=== PATIENT | male | born 1945 | race Caucasian/White ===

== ENCOUNTER 2016-09-17 09:52 | Inpatient (IN) ==
[2016-09-17] MEDS ORDERED: NS 1,000 ML IV ONE (10:07)
--- NOTE | 2016-09-17 10:33 | Diag Imaging Result Doc PS360 ---
EXAM: HEAD W/O CONTRAST HISTORY: AMS TECHNIQUE: Images were obtained from the skull base to vertex without IV contrast as per standard protocol. COMPARISON: None. FINDINGS: There is mild cerebral atrophy. There are no extra-axial collections. There is no evidence for acute infarct or hemorrhage. There is no midline shift or mass effect. There is no hydrocephalus. IMPRESSION: Mild cerebral atrophy. Electronically signed by Desirae Skaggs 09/17/2016 10:31 AM
[2016-09-17 10:36] LABS: MANUAL DIFF NEEDED? NO
[2016-09-17 10:38] LABS: BASO% 0.1 % (0.0-0.8); EOS# 0.04 X1000 (0.0-0.7); EOS% 0.4 % (0.0-10.0); HEMATOCRIT 41.1 % (42.0-52.0); HEMOGLOBIN 13.8 g/dL (14.0-18.0); IMM GRAN# 0.01 X1000 (0.0-0.04); IMM GRAN% 0.1 % (0.0-0.5); LYMPH# 1.22 X1000 (1.2-3.4); LYMPH% 12.9 % (20.5-51.1); MCH 29.4 PG (27-31); MCHC 33.6 g/dL (33-37); MCV 87.6 FL (81-99); MONO# 1.14 X1000 (0.11-0.59); MONO% 12.1 % (1.7-9.3); NEUT% 74.4 % (42.2-75.2); PLT 162 X1000 (130-400); RBC 4.69 XMIL (4.7-6.1)
--- NOTE | 2016-09-17 10:38 | Diag Imaging Result Doc PS360 ---
EXAM: CHEST-1 VIEW HISTORY: AMS TECHNIQUE: AP single view COMPARISON: None. FINDINGS: The cardiomediastinal silhouette is within normal limits. The pulmonary vasculature is not congested. Lung volumes are reduced with crowding of the basilar bronchovascular structures. It is difficult to exclude a mild left basilar infiltrate. There is no pneumothorax. IMPRESSION: Reduced lung volumes. Cannot exclude mild left basilar infiltrate. Electronically signed by Desirae Skaggs 09/17/2016 10:35 AM
[2016-09-17 10:54] LABS: ALBUMIN 4.4 g/dL (3.5-5.0); CALCIUM 9.1 mg/dL (8.8-10.2); MAGNESIUM 2.2 mg/dL (1.5-2.7); POTASSIUM 3.6 mmol/L (3.5-5.1); TOTAL BILIRUBIN 0.4 mg/dL (0.20-1.00); TOTAL PROTEIN 6.9 g/dL (6.3-8.3)
--- NOTE | 2016-09-17 11:06 | EKG Report ---
Test Performed on : 09/17/2016 10:46:29 AM Test Reason : altered hx Blood Pressure : / mmHG Vent. Rate : 093 BPM Atrial Rate : 093 BPM P-R Int : 162 ms QRS Dur : 092 ms QT Int : 372 ms P-R-T Axes : 067 -21 060 degrees QTc Int : 462 ms Normal sinus rhythm. Minimal voltage criteria for LVH, may be normal variant Borderline ECG When compared with ECG of 18-FEB-2016 09:11, T wave amplitude has decreased in Anterior leads Unconfirmed Result
[2016-09-17 11:19] LABS: CK INDEX 1.6 (0.0-2.5); CK-MB 5.09 ng/mL (0.0-5.0)
--- NOTE | 2016-09-17 12:15 | PROVIDER DOCUMENTATION ---
This chart was entered by Sol Bates Scribe, acting as scribe for Jose Pena MD. HPI-Neurological Disorder - General Chief Complaint: Altered Mental Status Stated Complaint: altered mental Time Seen by Provider: 09/17/16 10:06 Source: patient Allergies/Adverse Reactions: Patient Allergies Allergy/AdvReac Type Severity Reaction Status Date / Time No Known Allergies Allergy Verified 02/18/16 08:45 Home Medications: Home Medication List Medication Instructions Recorded Confirmed Last Taken Type Bupropion X.l. [Wellbutrin Xl] 300 mg PO DAILY 02/18/16 02/20/16 02/19/16 09:00 History Diazepam [Valium] 5 mg PO BID 02/18/16 02/20/16 02/19/16 21:00 History Gabapentin [Neurontin] 2 tab PO QHS 02/18/16 02/20/16 02/19/16 21:00 History Insulin Glargine [Lantus] 20 unit SUBQ QHS 02/18/16 02/20/16 02/19/16 21:00 History Insulin NPL/Insulin Lispro 10 unit SQ TID 02/18/16 02/20/16 02/20/16 05:00 History [Humalog Mix 75-25 Pen] Lisinopril [Zestril] 5 mg PO PRN PRN 02/18/16 02/20/16 02/20/16 05:00 History Metformin [Glucophage] 500 mg PO PRN PRN 02/18/16 02/20/16 02/19/16 21:00 History SIMVAstatin [Zocor] 10 mg PO QHS 02/18/16 02/20/16 02/19/16 21:00 History Oxycodone HCl/Acetaminophen 1 each PO Q4H PRN PRN #60 tablet 02/21/16 Unknown Rx [Percocet 5-325 mg Tablet] Rivaroxaban [Xarelto] 10 mg PO Q24H #14 tablet 02/21/16 Unknown Rx - History of Present Illness-Neuro Nature of Presenting Problem: Pt is 70 y/o M presents to the ED with AMS. Pt's friend states Pt came to work confused, disoriented and having abnormal gait. Pt's friend states last time seen normal was at 1800 last night. 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 Pt's friend states Pt is not like himself at all. Headache Location: denies: frontal, temporal, occipital, parietal, global Severity: reports: moderate Onset/Duration: reports: this morning Timing: reports: still present, getting worse Context: reports: impaired speech (slurred), facial droop (R), other (AMS) Approximate time patient was last seen normal?: 18:00 (last night ) Character of Altered Mental Status: reports: disoriented, confused Any recent trauma/injury?: reports: none Character of Deficits: reports: new weakness, impaired speech, decreased ability to stand, decreased ability to walk New weakness or altered sensation location:: reports: none Cognitive Baseline: alert but disoriented (confused) Gait Baseline: walks without assistance Associated Symptoms: reports: decreased ability to walk or stand, confusion, slurred speech, weakness. denies: short of breath, headache, fainting, dizziness, chest pain, neck/back pain, fatigue, fever/chills, insomnia, loss of consciousness, muscle spasms, nausea, numbness in legs/feet, paresthesia, diaphoretic, ringing in ears, seizures, sleepy, tingling in legs/feet, trouble walking, vomiting, vision changes Similar Symptoms Previously?: No Recently seen or treated by another doctor?: No Review of Systems - Adult - REVIEW OF SYSTEMS - ADULT Constitutional: reports: no symptoms reported Eyes: reports: no symptoms reported Ears, Nose, Mouth & Throat: reports: no symptoms reported Cardiovascular: reports: no symptoms reported Respiratory: reports: no symptoms reported Gastrointestinal: reports: no symptoms reported Genitourinary: reports: no symptoms reported Musculoskeletal: reports: muscle weakness. denies: bone pain, back pain, joint pain, neck pain Integumentary: reports: no symptoms reported Neurological: reports: slurred speech, other (confusion and disoriented). denies: dizziness/vertigo, headache/migraines, numbness, syncope Psychiatric: reports: no symptoms reported Endocrine: reports: no symptoms reported Hematologic/Lymphatic: reports: no symptoms reported Allergic/Immunologic: reports: no symptoms reported All Other Systems: Reviewed and Negative Past History - Adult - PAST MEDICAL HISTORY-ADULT Review of Records: reports: Nursing Assessment Review, Medications Reviewed, Social history reviewed & non-contributory. Major Childhood Illnesses: reports: denies history Cardiovascular: reports: HTN Respiratory: reports: denies history Gastrointestinal: reports: denies history Obstetrical/Gynecological: reports: denies history Genitourinary: reports: denies history Musculoskeletal: reports: denies history Neurological: reports: denies history Endocrine/Immune: reports: Diabetes Other Conditions: reports: denies history - PRIOR SURGERIES/PROCEDURES Surgical/Procedure History: reports: appendectomy, tonsillectomy, joint replacement - PRIOR HOSPITALIZATIONS Prior Hospitalizations: reports: for similar symptoms - IMMUNIZATION STATUS Childhood Immunizations: See Nurse Assessment Flu Vaccine: See Nurse Assessment - FAMILY HISTORY Family History: reviewed, not pertinent - SOCIAL HISTORY Smoking: quit greater than 1 year, cigarettes Substance Use: denies Living Situation: family Physical Exam- Neurological - Physical Exam-Neuro Initial Vital Signs Reviewed: Yes General Appearance: alert, no apparent distress Eye Exam: bilateral eye: normal inspection, PERRL, EOMI HENMT: normocephalic/atraumatic, moist mucous membranes, normal ENT inspection Head Injury: no evidence of injury Neck: non-tender, full range of motion, supple, normal inspection Respiratory: chest non-tender, lungs clear, normal breath sounds Cardiovascular: normal peripheral pulses, regular rate, rhythm Abdominal Exam: normal bowel sounds, non tender, soft Lymphatic: no adenopathy Extremity: normal range of motion, non-tender. negative: normal gait, deformity , erythema setter off Exam: normal hearing, PERRL, abnormal speech (slurred speech), facial droop (R) Coordination/Gait: ABN nose to finger (R), ABN nose to finger (L). negative: normal gait Motor/Sensory: no motor deficit, no pronator drift Neurologic: abnormal gait, facial droop (R) Integumentary: normal color, normal turgor, warm/dry Psych/Mental Status: disoriented x 3, other (confused) Progress - PLAN OF CARE/RESULTS Progress/Plan/Lab Results: Vital Signs - 8 hr 09/17/16 09:53 Temperature 98 F Pulse Rate 93 H Respiratory Rate 18 Blood Pressure 154/87 O2 Sat by Pulse Oximetry 95 Laboratory Results - last 24 hr 09/17/16 09/17/16 09/17/16 09:55 10:28 10:28 WBC RBC Hgb Hct MCV MCH MCHC RDW Std Deviation Plt Count MPV Immature Gran % (Auto) Neut % (Auto) Lymph % (Auto) [place] % (Auto) Eos % (Auto) Baso % (Auto) Immature Gran # (Auto) Neut # (Auto) Lymph # (Auto) [place] # (Auto) Eos # (Auto) Baso # (Auto) D-Dimer Sodium 141 Potassium 3.6 Chloride 100 Carbon Dioxide 24 L Anion Gap 17 BUN 31 H Creatinine 2.2 H Estimated GFR/1.73 m2 30 BUN/Creatinine Ratio 14 Glucose 107 H POC Glucose 117 H Calculated Osmolality 288 Calcium 9.1 Magnesium 2.2 Total Bilirubin 0.40 AST 19 ALT 13 Alkaline Phosphatase 53 Creatine Kinase 320 H Creatine Kinase Index 1.6 CK-MB (CK-2) 5.09 H Troponin T < 0.010 Uqk-N-Owabcutwohv Pept Total Protein 6.9 Albumin 4.4 Globulin 3.0 Albumin/Globulin Ratio 2.0 09/17/16 09/17/16 09/17/16 10:28 10:28 10:28 WBC 9.43 RBC 4.69 L Hgb 13.8 L Hct 41.1 L MCV 87.6 MCH 29.4 MCHC 33.6 RDW Std Deviation 13.6 Plt Count 162 MPV 10.0 Immature Gran % (Auto) 0.1 Neut % (Auto) 74.4 Lymph % (Auto) 12.[address] % (Auto) 12.1 H Eos % (Auto) 0.4 Baso % (Auto) 0.1 Immature Gran # (Auto) 0.01 Neut # (Auto) 7.01 H Lymph # (Auto) 1.22 [place] # (Auto) 1.14 H Eos # (Auto) 0.04 Baso # (Auto) 0.01 D-Dimer 1.91 H Sodium Potassium Chloride Carbon Dioxide Anion Gap BUN Creatinine Estimated GFR/1.73 m2 BUN/Creatinine Ratio Glucose POC Glucose Calculated Osmolality Calcium Magnesium Total Bilirubin AST ALT Alkaline Phosphatase Creatine Kinase Creatine Kinase Index CK-MB (CK-2) Troponin T Umq-[id number]-Kifhfugszrc Pept 250 H Total Protein Albumin Globulin Albumin/Globulin Ratio Orders Category Date Time Status Cardiac Monitoring DIRECTED Care 09/17/16 09:59 Active CHEST-1 VIEW [RAD] Stat Exams 09/17/16 10:08 Completed HEAD W/O CONTRAST [CT] Stat Exams 09/17/16 10:07 Completed BNP [PRO B-NATRIURETIC PEPTIDE] Stat Lab 09/17/16 10:28 Completed CBC WITH DIFF [HEME] Stat Lab 09/17/16 10:28 Completed CK PROFILE [SP CHEM] Stat Lab 09/17/16 10:28 Completed COMPREHENSIVE METABOLIC PANEL [CHEM] Stat Lab 09/17/16 10:28 Com[address] D-DIMER PL [COAG] Stat Lab 09/17/16 10:28 Completed MAGNESIUM [CHEM] Stat Lab 09/17/16 10:28 Completed TROPONIN T Stat Lab 09/17/16 10:[address] W/POSS RFLX CULT [URINALYSIS] Stat Lab 09/17/16 10:07 Uncollected URINE DRUG SCREEN PL Stat Lab 09/17/16 10:07 Uncollected 0.9% Sodium Chloride Inj [Ns] 1,000 ml Med 09/17/16 10:07 Discontinued IV 999 mls/hr EKG [EKG] Stat Ther 09/17/16 09:56 Draft US [Venous U/S Bilateral Legs] Stat Ther 09/17/16 12:12 Ordered Result Diagrams: 09/17/16 10:28 09/17/16 10:28 - EKG 1 Time of EKG reading by physician:: 10:46 EKG Read and Signed by:: Jose Pena EKG Interpretation (*Must complete 3 of following elements*): Abnormal Rate: 93 Rhythm: normal sinus rhythm Comments: minimal voltage criteria for LVH, may be normal variant - XRAY 1 XRAY Study: Chest Impression: Abnormal XRAY Interpretation: reduced lung volumes. cannot exclude mild left basilar infiltrate. - CT/MRI 1 CT Study: Head Impression: Abnormal CT Results: mild cerebral atrophy - CONSULTS/PCP/HOSPITALIST Notification #1 *Consult/PCP/Hospitalist*: Dr. Wellington Time Discussed: 12:12 (Dr. Wellington accepted admit ) Reason/Comments: Dr. Pena consulted with Dr. Wellington about admit of Pt Consult Disposition: Admit Departure - Departure Date of Disposition Decision: 09/17/16 Time of Disposition Decision: 11:44 DIAGNOSIS: Altered mental status, Renal insufficiency Disposition: ADMITTED INPATIENT 09 Certified Medical Emergency: Emergent Condition: Stable Referrals and Follow-Ups: None,PCP [Primary Care Provider] - - Critical Care Note This patient required my direct & personal management of CC.: No This chart was documented by the indicated scribe, (Sol Bates Scribe) and accurately reflects the services I performed and decisions made by me, Jose Pena MD, as attested by the provider's signature.
[2016-09-17] MEDS ORDERED: ZOFRAN IV PRN (15:09)
[2016-09-17] MEDS ORDERED: NORCO-7.5 PO ONE (15:41)
[2016-09-17] MEDS: NS 1,000 ML IV SCH (16:45)
[2016-09-17] MEDS: HUMALOG DOSE (PARKWAY) SUBQ SCH ×2 (17:02→21:27)
[2016-09-17 17:31] LABS: URINE CULTURE PL NEEDED? NO
--- NOTE | 2016-09-17 17:32 | HISTORY AND PHYSICAL ---
CHIEF COMPLAINT: Altered mental status. HISTORY OF PRESENT ILLNESS: This is a 70-year-old male with a history of diabetes mellitus, hypertension who presented to the emergency room after having an episode. He presented to the emergency room with coworkers. According to the coworkers, the patient presented to work. He was confused and disoriented, his gait was abnormal, his speech was slurred and he would start sentences and not be able to complete them. They checked his blood sugar. When it was not low, they brought him to the emergency room. On arrival to the emergency room, he was noted to have slurred speech with a right facial droop and abnormal gait. At the time of my exam this has resolved and his family member states he is back to his normal. CT of the head revealed no acute processes. The patient states that he woke up at 6 o'clock this morning. He remembers walking to the couch and the next thing he remembers was waking up on the couch and it was 8 o'clock and he should be at work at 8. He does not remember driving to work nor walking into work. He states that the people at work told him that he had slurred speech and that he was not walking well, but he thought that he was at his normal. The family does report episodes like this in the past that were separate from his hypoglycemic episodes. The patient states he has a history of migraines and that he had a migraine headache all weekend. Now he is complaining of headache that is not consistent with his normal migraine headache, hurting at the top of his head. He denies any light sensitivity or nausea or vomiting. PAST MEDICAL HISTORY: Hypertension, diabetes mellitus. PAST SURGICAL HISTORY: Appendectomy, total knee replacement, tonsillectomy. SOCIAL HISTORY: He lives alone. He denies alcohol tobacco or illicit drug use. 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 ALLERGIES: No known drug allergies. HOME MEDICATIONS: Glucophage 1000 b.i.d., Neurontin 2 tabs at bedtime, Valium 5 b.i.d. p.r.n., Wellbutrin XL 300 daily, Lantus insulin 20 units at bedtime, Zestril 5 mg daily, Zocor 10 mg at bedtime. REVIEW OF SYSTEMS: A 14 point review of systems is discussed with patient in the HPI. He denied chest pain, palpitations, dizziness, cough, fever, chills, sweats, any nausea, vomiting, diarrhea, constipation, black or bloody vomitus, black or bloody stools, hematuria, dysuria, frequency, urgency. PHYSICAL EXAMINATION: GENERAL: This is a 70-year-old, male, who is sitting up in bed with no distress. VITAL SIGNS: Blood pressure is 150/90 with a heart rate of 86, respirations are 18, temperature is 98 degrees with room air saturations of 100%. HEENT: Head is normocephalic, atraumatic. Pupils are equal, round, react to light. EOMs are intact. Sclerae are anicteric. Mucous membranes are moist. NECK: Supple with trachea midline. CARDIOVASCULAR: Regular rate and rhythm, S1, S2 appreciated. PULMONARY: Breath sounds are clear. No increased work of breathing noted. GASTROINTESTINAL: Abdomen soft, nontender, nondistended with bowel sounds in all 4 quadrants. MUSCULOSKELETAL: Good range of motion of joints. EXTREMITIES: No clubbing, cyanosis, or edema. Calves are nontender. Pulses are palpable x4. NEUROLOGIC: Pupils are 3 mm, equal, round, react to light. EOMs are intact. He has no facial droop. No tongue or uvula deviation. Forehead is spared. Equal shoulder shrug. He has no plantar drift. Scroll Assembler are 5/5. Toehnq-ku-xhdo 3/3 bilateral. At present, gait is normal with 5/5 muscle strength lower extremities. DIAGNOSTICS: CT of the head revealed no acute processes with mild cerebral atrophy. WBC was 9.4 with a hemoglobin 13.8, hematocrit 41.1 and platelets of 162,000. D-dimer is 1.91. Sodium is 141, potassium 3.6, BUN 31, creatinine 2.2 with glucose ranging 107-243. ASSESSMENT: 1. Syncope. 2. Altered mental status. Possible transient ischemic attack. 3. Headache. 4. Acute kidney injury, most likely secondary to dehydration. 5. Elevated D-dimer. 6. Diabetes mellitus. 7. Hypertension. PLAN: The patient will be admitted to the hospital. He will be placed on telemetry. We will do neurologic checks q.4 hours. We will attempt to obtain an MRI of the brain today. Carotid Doppler, echocardiogram will be performed as well as lower extremity Doppler. We will hold his long-acting insulin, place him on fingerstick blood sugar with sliding scale insulin. Of course, we will hold his Zestril and Glucophage due to his kidney injury. Further treatments pending hospital course. Dictated by JOCELINE Rico for Jh Wellington MD cc: JOCELINE Rico MD
[2016-09-17 17:51] LABS: UR AMPHETAMINES QUAL NONE DETECTED (NONE DETECT); UR BARBITUATES QUAL NONE DETECTED (NONE DETECT); UR BENZODIAZEPIN QUAL PRESUMPTIVE POSITIVE (NONE DETECT); UR CANNABINOIDS QUAL NONE DETECTED (NONE DETECT); UR COCAINE QUAL NONE DETECTED (NONE DETECT); UR MDMA QUAL NONE DETECTED (NONE DETECT); UR METHADONE QUAL NONE DETECTED (NONE DETECT); UR METHAMPHETAMINE QUAL NONE DETECTED (NONE DETECT); UR OPIATES QUAL PRESUMPTIVE POSITIVE (NONE DETECT); UR OXYCODONE QUAL NONE DETECTED (NONE DETECT); UR PCP QUAL NONE DETECTED (NONE DETECT); UR TCA QUAL NONE DETECTED (NONE DETECT)
[2016-09-17 18:01] LABS: BILIRUBIN URINE NEGATIVE (NEGATIVE); BLOOD URINE NEGATIVE (NEGATIVE); CLARITY CLEAR (CLEAR); COLOR YELLOW; LEUKOCYTES URINE NEGATIVE (NEGATIVE); NITRITE URINE NEGATIVE (NEGATIVE); PROTEIN URINE NEGATIVE (NEGATIVE); UROBILINOGEN URINE NORMAL
[2016-09-17 18:10] LABS: URINE CAST NONE SEEN /LPF; URINE CRYSTAL NONE SEEN /HPF; URINE EPITHELIAL CELLS <10 /HPF (<10); URINE RBC <10 /HPF (<10); URINE WBC <10 /HPF (<10)
[2016-09-17 18:11] LABS: URINE SOURCE CLEAN CATCH
[2016-09-17] MEDS: PRILOSEC PO SCH (21:23)
[2016-09-17] MEDS ORDERED: TYLENOL PO ONE (21:38)
[2016-09-18 03:49] VITALS: BP 155/86
[2016-09-18 06:23] LABS: HEMATOCRIT 36.4 % (42.0-52.0); HEMOGLOBIN 11.8 g/dL (14.0-18.0); MCH 28.4 PG (27-31); MCHC 32.4 g/dL (33-37); MCV 87.5 FL (81-99); MPV 10.5 FL (7.4-10.4); RBC 4.16 XMIL (4.7-6.1)
[2016-09-18] MEDS: NS 1,000 ML IV SCH (06:26)
[2016-09-18] MEDS: HUMALOG DOSE (PARKWAY) SUBQ SCH ×2 (06:26→11:24)
[2016-09-18 06:50] LABS: AGAP 11; ALBUMIN 3.7 g/dL (3.5-5.0); ALKALINE PHOSPHATASE 46 U/L (32-122); BUN 17 mg/dL (8-22); CALCIUM 8.3 mg/dL (8.8-10.2); CHLORIDE 103 mmol/L (98-107); COSMO 284; GOT 16 U/L (10-34); GPT 10 U/L (10-44); POTASSIUM 4.1 mmol/L (3.5-5.1); SODIUM 139 mmol/L (136-145); TCO2 26 mmol/L (25-35); TOTAL PROTEIN 5.7 g/dL (6.3-8.3)
[2016-09-18] MEDS: PRILOSEC PO SCH (09:27)
--- NOTE | 2016-09-18 09:46 | Extremity Venous Study ---
EXAM: Carotid Ultrasound HISTORY: syncope, AMS TECHNIQUE: Carotid Doppler ultrasound COMMENT: There is no appreciable plaque. There is no evidence of hemodynamically significant stenosis by velocity criteria. There is antegrade flow in both vertebral arteries. IMPRESSION: No evidence of significant stenosis (0-39%.) Electronically signed by Gallo Negrete 09/18/2016 9:44 AM
--- NOTE | 2016-09-18 09:49 | Extremity Venous Study ---
EXAM: Venous U/S Bilateral Legs HISTORY: AMS with elevated D-dimer TECHNIQUE: Compression venous ultrasound with color Doppler COMMENT: The deep veins of the lower extremities are compressible and demonstrate normal color Doppler flow with augmentation. IMPRESSION: No evidence of deep venous thrombosis. Electronically signed by Gallo Negrete 09/18/2016 9:46 AM
--- NOTE | 2016-09-18 10:13 | Diag Imaging Result Doc PS360 ---
EXAM: ANGIOGRAM/PULMONARY ARTERIES HISTORY: elevated D dimer TECHNIQUE: CT of the chest with intravenous contrast with reduced radiation dose COMMENT: There is some motion artifact. There are no apparent pulmonary arterial filling defects. The aorta is not distended and there is no evidence of dissection. There are some granulomata present in the spleen. There are calcified nodes in the right hilum. There is a noncalcified AP window node on the left measuring over 17 mm in greatest dimension. No abnormal fluid collections are present. There are linear opacities present in the left base in both the lower lobe and lingula which may be due to fibrosis or atelectasis. There are no previous studies. No definite acute bony abnormalities are present. IMPRESSION: Slightly suboptimal study due to patient respiratory motion. No evidence of pulmonary emboli or other acute abnormality. Electronically signed by Gallo Negrete 09/18/2016 10:10 AM
--- NOTE | 2016-09-18 15:29 | ECHO REPORT ---
ORDER DATE: 09/17/2016 DATE OF STUDY: 09/18/2016. MEASUREMENTS: 1. Left ventricular end-diastolic diameter 4.6. 2. End-systolic 3.1. 3. Septal thickness 0.9. 4. Posterior wall thickness 0.9. 5. Left atrium 3.8. 6. Aortic root 3.3 SUMMARY: 1. Adequate quality study. 2. Aortic valve is trileaflet and opens normally on 2-dimensional images. There is trace aortic regurgitation. Mitral, tricuspid, and pulmonic valves are without structural abnormality with mild mitral regurgitation, very mild tricuspid regurgitation, and trace pulmonic insufficiency. The estimated systolic PA pressure by Doppler is 35 to 40 mmHg. Aortic root is normal size. 3. Normal left ventricular dimensions demonstrated. Estimated left ejection fraction is approximately 65%. No regional wall motion abnormalities are evident. Doppler suggests grade 1 left ventricular diastolic dysfunction. Left atrium, right atrium, and right ventricle are normal in size with normal right ventricular systolic function. 4. No pericardial effusion. 5. Appearance of inferior vena cava suggests normal central venous pressure. CONCLUSIONS: 1. Trace aortic regurgitation. 2. Mild mitral regurgitation. 3. Very mild tricuspid regurgitation with estimated systolic PA pressure 35-40 mmHg. 4. Normal left ventricular systolic function without wall motion thought to be evident. 5. Grade 1 left ventricular diastolic dysfunction. cc: MD Yamilet Briseno CRNP
--- NOTE | 2016-09-18 18:17 | DISCHARGE SUMMARY ---
ADMISSION DATE: 09/17/2016 DISCHARGE DATE: 09/18/2016 PRIMARY CARE PHYSICIAN: Dr. Alex DIAGNOSES: 1. Witnessed syncopal episode. 2. Transient ischemic attack resolved. 3. Headache resolved. 4. Acute kidney injury secondary to dehydration resolved. 5. Elevated D-dimer with negative CTA and lower extremity Doppler. 6. Diabetes mellitus. 7. Hypertension. DIAGNOSTICS: 1. 09/17/2016, CT of the head revealed mild cerebral atrophy with no evidence for acute infarct or hemorrhage. No midline shift or mass effect. 2. 09/17/2016, chest x-ray revealed reduced lung volumes. Cannot exclude mild left basilar infiltrate. 3. Bilateral lower extremity Doppler. No evidence of deep vein thrombosis. 4. Carotid Doppler revealed no evidence of significant stenosis 0-39%. 5. Pulmonary arteriogram: Slight suboptimal study due to patient respiratory motion with no evidence of pulmonary emboli or other acute abnormality. HOSPITAL COURSE: Mr. Bradshaw presented to the emergency room after having a witnessed syncopal episode by coworkers. They stated that he came in to work with a facial droop, abnormal gait, slurred speech. They checked his blood sugar and it was between 150 and 200. When that was normal he was brought to the emergency room. Symptoms did resolve by the time of my exam. He has had no recurrence of symptoms. In talking with the patient he states that he has these episodes quite frequently and he does not feel any warning. He will just wake up sitting somewhere and he states he checks his blood sugar and usually it will be in the 20s or 30s and he will treat it. He does state that he has had many episodes where his blood sugar was 100-150. Many of these are associated with a migraine headache. He was on telemetry, sinus rhythm with no ectopy throughout the hospitalization. As stated above CT of the head, carotid Doppler were negative. He did have an elevated D-dimer and after hydration and his creatinine pulmonary arteriogram was performed which revealed no pulmonary embolus per report. Echocardiogram will be performed. Of note, he did have a creatinine of 2.2 on admission. He was noted to have dry mucous membranes at this time. After rehydration his creatinine did drop to 1. He states he has never had any difficulty with his renal function in the past. DISCHARGE PHYSICAL EXAMINATION: Cardiovascular: Regular rate and rhythm. S1 and S2 appreciated. Pulmonary: Breath sounds are clear with no increased work of breathing noted. Gastrointestinal: Abdomen is soft, nontender, nondistended with bowel sounds in all 4 quadrants. Extremities: No clubbing, cyanosis, or edema. Calves are nontender. Pulses are palpable x4. Neurologic: He is alert and oriented x3 with cranial nerves 2-12 grossly intact. DISCHARGE DIET: Diabetic. DISCHARGE ACTIVITY: As tolerated. DISCHARGE MEDICATIONS: Zocor 10 at bedtime, Zestril 5 daily, Lantus 20 units at bedtime, Wellbutrin XL 300 mg daily, Valium 5 mg p.o. b.i.d. p.r.n., Neurontin 2 tabs at bedtime, Glucophage 1000 b.i.d. FOLLOW UP: 1. He is to follow up with Dr. Alex in the next 1-2 weeks. He has been given an order for an MRI of the brain with and without contrast. He is to have this done before his appointment with Dr. Alex in the results will be reviewed at that time. 2. He is to follow up with Dr. Arvizu in Cardiology. The office will call him next week to set up an appointment as well as an event monitor. He has been instructed if he has not heard from the office by Thursday to call. 3. Dr. Silverio in Neurology. The patient is unsure if he wants to see a neurologist. We have given him the name and number and he will call. 4. 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 DISPOSITION: He is being discharged home in stable condition with friends. TIME SPENT AT DISCHARGE: This is a greater than 30 minute discharge from 1:40 to 2:16. Dictated by JOCELINE Rico for Jh Wellington MD cc: JOCELINE Rico MD
== END 2016-09-18 15:03 | disposition home or self-care (01) ==
LOC: P.ED 09:52 → P.MEDSURG 12:27
PROVIDERS: ATTEND Family Medicine